=== PATIENT | female | born 1995 | race Two or more races ===

== ENCOUNTER 2025-06-24 06:00 | Day surgery (SDC) | payer OTHER ==
[2025-06-21 10:03] LABS: BASO % 0.6 % (0.1-1.2); EOS # 0.19 (0.04-0.54); EOS % 2.9 % (0.7-7.0); LYMPH # 1.84 (1.18-3.74); LYMPH % 28.1 % (19.3-53.1); MEAN PLATELET VOLUME 9.40 fl (9.4-12.4); MONO # 0.44 (0.24-0.82); MONO % 6.7 % (4.7-12.5); NEUT # 4.00 (1.56-6.13); NEUT % 61.2 % (34.0-71.1); RED CELL DISTRIBUTION WIDTH 11.8 % (11.6-14.4)
[2025-06-21 10:05] LABS: URINE APPEARANCE Clear; URINE BILIRRUBIN Negative (NEGATIVE); URINE BLOOD Moderate; URINE COLOR Yellow; URINE GLUCOSE Negative (NEGATIVE); URINE KETONE Trace (NEGATIVE); URINE LEUKOCYTE Negative; URINE NITRATE Negative; URINE PROTEIN Negative (NEGATIVE); URINE UROBILINOGEN 0.2 E.U./dl
[2025-06-21 10:10] LABS: URINE BACTERIA 22.8 uL (0.0-1933); URINE EPITHELIAL CELLS 23.8 uL (0.0-38.8); URINE RBC 156.0 uL (0.0-20.8); URINE WBC 6.9 uL (0.0-23.2)
[2025-06-21 10:22] LABS: URINE CAST 0.14 uL (0.0-1.40)
[2025-06-21 10:33] LABS: INR 1.03
[2025-06-21 10:36] LABS: BUN CREA RATIO 13.0 (7.0-25.0); CREATININE SERUM 0.68 mg/dL (0.55-1.02); GFR 103.03; GLUCOSE FASTING 102.0 mg/dL (65-100); OSMOLALITY SERUM 282.0 MOSM/KG (275-295)
[~2025-06-24 06:00] MED LIST: AMOX-CLAV 875-1 EACH PO
[2025-06-24] MEDS ORDERED: CEFAZOLIN SODIUM 1,000 MG VIAL ONE (06:56)
[2025-06-24] MEDS ORDERED: LIDOCAINE HCL 1%/EPINEPHRINE 20ML VIAL IJ ONE (07:26)
[2025-06-24] MEDS ORDERED: POVIDONE-IODINE 118 ML BOTT TOP ONE (07:26)
[2025-06-24] MEDS ORDERED: CIPROFLOXACIN2.5 ML OTIC (08:14)
[2025-06-24] MEDS ORDERED: ONDANSETRON HCL 2 MG/ML VIAL ONE (08:40)
[2025-06-24] MEDS ORDERED: ONDANSETRON HCL 2 MG/ML VIAL IV ONE (08:45)
[2025-06-24] MEDS ORDERED: MORPHINE SULFATE 4 MG/ML VIAL IV ONE (09:35)
== END 2025-06-24 11:40 | disposition home or self-care (01) ==
LOC: CIR.AMB 06:00
PROVIDERS: ATTEND Otolaryngology Otology & Neurotology
DX: H73.813 Atrophic flaccid tympanic membrane, bilateral (principal); H90.0 Conductive hearing loss, bilateral